=== PATIENT | male | born 1990 | race Caucasian/White ===

== ENCOUNTER 2023-11-19 13:35 | Emergency (ER) | payer MEDICAID ==
[~2023-11-19] VITALS: Ht 182.9 cm; Wt 79.4 kg
[2023-11-19 14:06] VITALS: BP_SYST 120; PULSE 82; RESP 18; TEMP 98.6; O2SAT 97
[2023-11-19 18:41] VITALS: BP_SYST 120; PULSE 82; RESP 18; TEMP 98.6; O2SAT 97
== END 2023-11-19 16:25 | disposition home or self-care (01) ==
LOC: SED 13:35
DX: Z00.8 Encounter for other general examination (principal); Z88.5 Allergy status to narcotic agent; Z88.6 Allergy status to analgesic agent
CPT/HCPCS: 71045; 99283